=== PATIENT | male | born 1985 | race Caucasian/White ===

== ENCOUNTER 2017-02-07 12:40 | Day surgery (SDC) | payer OTHER ==
[~2017-02-07] VITALS: Ht 177.8 cm; Wt 92.5 kg
[~2017-02-07 12:40] MED LIST: 0.9% Sodium Chloride 1,000 ML IV PRN; ACET325T51 PO; DOCU240C41 PO; FERR325C PO; LACT1TAB11 PO; SERT25TA2 PO; Sodium Chloride LOK Flush 10 mL Syringe IV PRN; fentaNYL-PF 50 mCg/mL 2 mL Inj IVPUSH PRN
[2017-02-07 14:55] VITALS: BP 140/94; PULSE 64; RESP 16; O2SAT 100
[2017-02-07 16:00] VITALS: BP 97/65; PULSE 59; RESP 14; O2SAT 98
--- NOTE | 2017-02-07 16:02 | PCM.ENDCOL ---
Colonoscopy Date of Service: Feb 07, 2017 Physician Ha Garduno MD Pre Procedure Diagnosis: Crohn's Post Procedure Dx & Findings: Ulcerative colitis Procedure Colonoscopy PROCEDURE IN DETAIL: Prep adequate Withdrawal time[default value] After unremarkable rectal examination the Olympus video colonoscope was inserted patient's anal canal and was advanced to cecum. Landmarks were identified including the ileocecal valve and appendiceal orifice. Scope further as the terminal ileum. We advanced 10 cm. Normal villous structures without ulcer mass erosion noted. Scope was withdrawn systematically. Visualized colonic mucosa showed healthy shiny mucosa with normal healthy- appearing vasculature. However, starting in the ascending colon there is patchy area of irritation and edema redness erosions down to the 50 cm from the anal verge. We took biopsies of these isolated spots. We will labeled as right colon. Starting at 50 cm, to the rectum the colonic mucosa continuous edema redness erosions continuous to the rectum. We took random biopsies of the inflamed mucosa and labeled and left colon. In the rectum retroflexion was done which showed hemorrhoids. Anal canal was inspected carefully on the way out and hemorrhoids noted. Impression Suspect ulcerative colitis patchy area in the right side is unusual. Hemorrhoids Recommendation Stool studies - stool culture and C. difficile Follow up in GI clinic Presedation Assessment Risks and Benefits Informed consent was obtained from the patient after all risks and benefits including but not limited to drug reaction, infection, pain, bleeding, perforation, as well as alternatives were discussed. Patient monitoring Continuous pulse oximetry, cardiac monitoring, blood pressure monitoring, IV access, and oxygen at 2L per nasal cannula. Periprocedural Fentanyl: Fentanyl 125mcg Incrementally Midazolam: Midazolam 6mg Incrementally Complications There were no periprocedural complications identified. Post Procedure Plan Post Procedure Recommendations 1. Restrict activities today. 2. Resume normal activities in the morning. 3. Resume medications. 4. Patient informed of normal post procedure side effects as bloating, drowsiness, blood streaking in the stool. 5. average risk CRCS. If colon polyps come back as: -Hyperplastic- can repeat colonoscopy in 10 years -Tubular adenoma- repeat colonoscopy in 5 years -Tubulovillous/villous adenoma- repeat colonoscopy in 3 years -If any dysplasia- return to clinic as soon as possible 6. Please don't hesitate to call me with any questions. Ha Garduno MD Feb 07, 2017 16:01
[2017-02-07 16:10] VITALS: BP 102/63; PULSE 62; RESP 16; O2SAT 97
[2017-02-07 16:15] VITALS: BP 103/64; PULSE 64; RESP 16; O2SAT 99
--- NOTE | 2017-02-09 11:13 | PATH ---
SURGICAL PATHOLOGY Attending Physician:Ha Garduno M.D. CASE STATUS: Signed Out PATIENT NAME: JOHAN LESTER PID: [id number] : 1985 DATE COLLECTED:02/07/2017 00:00 SPECIMEN: 1: Colon, Biopsy 2: Colon, Biopsy CLINICAL HISTORY: 1). RANDOM COLON 50CM BIOPSY 2). RIGHT SIDED COLON FINAL DIAGNOSIS: 1.RANDOM COLON 50 CM BIOPSY: ACTIVE COLITIS WITHOUT DISTORTION OF THE GLANDULAR ARCHITECTURE. Negative for granulomas, malignancy and dysplasia. 2.RIGHT SIDE COLON BIOPSIES: ACTIVE COLITIS WITHOUT DISTORTION OF THE GLANDULAR ARCHITECTURE. Negative for granulomas, malignancy and dysplasia. ICD10 code K52.9 NOTE: The etiology of the inflammation is not clear. This could represent early inflammatory bowel disease. Alternatively, an infectious etiology and chemical-induced colitis (NSAIDS) are possible causes. Clinical correlation is required for a definite diagnosis. GROSS DESCRIPTION: The specimen is received in two formalin filled containers labeled with the patient's name. 1). The specimen is sublabeled "random colon 50 CM" and consists of 4 portions of tissue which aggregate to 0.4 x 0.4 x 0.3 CM. The specimen is entirely submitted in cassette 1A. 2). The specimen is sublabeled "right side colon" and consists of 2 portions of tissue which aggregate to 0.3 x 0.3 x 0.2 CM. The specimen is entirely submitted in cassette 2A. 02/08/2017 [facility] MICRO DESCRIPTION: See diagnosis. ICD-9 CODES: CPT CODES: 1: 23867 2: 87172 Electronically Signed Out Simone Calle MD [facility] [address], [place] [address] Technical component performed at [facility], [address] [place] [address] Ave[address], [place], [address]
== END 2017-02-07 23:59 ==
LOC: END 12:40
PROVIDERS: ATTEND Internal Medicine
DX: K52.9 Noninfective gastroenteritis and colitis, unspecified (principal); K50.90 Crohn's disease, unspecified, without complications; K64.8 Other hemorrhoids; Z79.899 Other long term (current) drug therapy; Z87.891 Personal history of nicotine dependence
CPT/HCPCS: 45380; 87493; 88305; J2250; J3010; J7030